=== PATIENT | female | born 1945 | race Caucasian/White ===

== ENCOUNTER 2020-07-26 07:27 | Day surgery (SDC) | payer BC, SELFPAY ==
[2020-07-21 11:06] VITALS: BMI 31.1
--- NOTE | 2020-07-23 13:05 | MHC.SHP ---
Pre-Procedural Eval Section A The patient is an INPATIENT: No The History & Physical has been completed within 30 days and I have reviewed it.: Yes Section B Chief Complaint: Cataract Right Eye Allergies: Allergies Allergy/AdvReac Type Severity Reaction Status Date / Time latex Allergy Rash Verified 07/21/20 11:05 Plan Diagnosis/Plan: Unchanged I have reviewed the history and physical and performed a pertinent physical examination on my patient. No changes have occurred unless specified.
[2020-07-26] MEDS: Tetracaine HCl/PF 0.5% Oph Sol 4 ML DROPS 1 DROP EYE-RIGHT (09:07)
[2020-07-26] MEDS: Tropicamide 1 % Ophth Sol 3 ML BTL 1 DROP EYE-RIGHT ×3 (09:09→09:15)
[2020-07-26] MEDS: Phenylephrine HCL 2.5% Oph SoL 2 ML BOTTLE 1 DROP EYE-RIGHT ×3 (09:11→09:17)
[2020-07-26] MEDS: Lactated Ringers 500 ML 50 ML IV (09:18)
[2020-07-26 09:19] VITALS: BP 128/62; PULSE 69; RESP 20; TEMP 36.2; O2SAT 99
--- NOTE | 2020-07-26 09:23 | HO.ANESPROP2 ---
HPI - Anesthesia Eval Consult details Narrative: 74 year old female patient here for Right cataract extraction, IOL insertion PMFSH Past Medical History Medical History HTN (hypertension) Rash, skin Family History Family history of problems with anesthesia: No Surgical History Surgical History History of breast augmentation History of rhytidectomy Hx of colonoscopy History of Problems with Anesthesia: No Social History Social History Alcohol intake: current Alcohol intake frequency: a few times a week Alcohol type: wine Smoking Status: Former smoker Use of substances other than those prescribed or required for medical reasons: No Advance Directives: No Advance Directives Information Provided: No Advance Directives on File: No Meds Allergies Allergy/AdvReac Type Severity Reaction Status Date / Time latex Allergy Rash Verified 07/26/20 08:54 Active Medications: Current Medications Generic Name Dose Route Start Last Admin Trade Name Freq PRN Reason Stop Dose Admin Sodium Chloride 500 mls @ 50 mls/hr 07/26/20 06:00 Ns IV 07/26/20 15:59 .Q10H JASMYNE Lactated Ringer's 500 mls @ 50 mls/hr 07/26/20 07:15 07/26/20 09:18 Lr IV 50 mls/hr .Q10H JASMYNE Administration Lactated Ringer's 500 mls @ 50 mls/hr 07/26/20 07:15 Lr IV .Q10H JASMYNE Povidone Iodine 1 appl 07/26/20 08:43 Povidone Iodine 5 % Ophth Soln 30 Ml Bottle EYE-RIGHT PREOP PRN Pre-Op Surgical Implant Prophy Home Medications Medication Instructions Recorded Confirmed Last Taken Type cephalexin 1 cap PO BID 07/21/20 07/21/20 Unknown History conj estrog-medroxyprogest sharan 1 tab PO DAILY 07/21/20 07/21/20 Unknown History [Prempro] hydroxyzine HCl 25 mg PO TID PRN 07/21/20 07/21/20 Unknown History telmisartan 1 tab PO DAILY 07/21/20 07/21/20 Unknown History Exam Exam Date and Time: July 26, 2020922 Height,Weight and Vital Signs: Height 5 ft 2 in Weight 77.111 kg Last Vital Signs Temp 97.1 F 07/26/20 09:19 Pulse 69 07/26/20 09:19 Resp 20 07/26/20 09:19 BP 128/62 07/26/20 09:19 Pulse Ox 99 07/26/20 09:19 Airway Mallampati Class: II TM Dist: >3cm Neck ROM: Full Heart: RRR+ ?murmur Lungs: CTAB Assessment and Plan Assessment Anesthesia Assessment: Anesthesia Plan Discussed and Chart Reviewed Final Anesthetic Review NPO: Yes ASA Class: II Final Preanesthetic Review: No Changes in Pt Med Stat, Meds/Allgs Chart Reviewed, Consent Obtained/Reviewed and Anes Risks/Benef Reviewed Patient Risk: Low Procedure Risk: Low Assessment/Block/Sedation in SS: Assess/Block/Sedation-SS Anesthetic Plan Anesthetic Plan: MAC: Disposition: Standard PACU
--- NOTE | 2020-07-26 09:51 | HO.PNOPHT ---
Ophthalmology Procedure Procedure Date of Service: 07/26/20 Ophthalmology Viscoelastic: Healdustin Doradot Dual Pack Pro Ophthalmology Lenses: TECKASEY [id number] (22) Procedure Notes: PREOPERATIVE DIAGNOSIS: Decreased visual acuity right eye secondary to cataract POSTOPERATIVE DIAGNOSIS: Same PROCEDURE: Right cataract extraction with intraocular lens insertion SURGEON: Chad Kapoor M.D. ANESTHESIA: Topical/MAC ESTIMATED BLOOD LOSS: None COMPLICATIONS: None After obtaining informed consent, the patient was brought to the operating room suite and placed in the supine position. After adequate sedation per anesthesia, topical drops of Tetracaine were given to the right eye. The eye was then prepped and draped in the usual sterile fashion. The operating room microscope was then positioned over the operative eye and a lid speculum placed. A paracentesis was created. Viscoelastic was then instilled into the anterior chamber. A three plane incision was then created temporally, utilizing a 2.85 mm keratome. Capsulotomy forceps were then utilized to create a circular tear capsulotomy. Hydrodissection and hydrodelineation were carried out until adequate mobilization of the nucleus occurred. Phacoemulsification was then utilized to remove the dense central nucleus followed by removal of the cortical material utilizing the automated aspiration irrigation unit. Viscoelastic was instilled into the posterior capsular bag followed by placement of a posterior chamber intraocular lens without difficulty. The residual Viscoelastic was then removed utilizing the automated IA machine. The wound was checked and found to be watertight. The patient tolerated the procedure well and the lid speculum was removed. Intracameral injection of Vigamox 0.1 mL followed by a subtenon injection of Kenalog-40 0.2 mL were administered. The patient will be seen in the a.m.
[2020-07-26 10:20] VITALS: BP 122/60; PULSE 81; RESP 16; TEMP 37.3; O2SAT 99
== END 2020-07-26 11:24 | disposition home or self-care (01) ==
PROVIDERS: PCP Neuromusculoskeletal Medicine, Sports Medicine; Visit Provider Ophthalmology
PROC: (CPT 66985; principal; 2020-07-26 10:00)
DX: H25.11 Age-related nuclear cataract, right eye (principal); H54.7 Unspecified visual loss; Z83.511 Family history of glaucoma; I10 Essential (primary) hypertension; L30.9 Dermatitis, unspecified; Z79.899 Other long term (current) drug therapy; Z87.891 Personal history of nicotine dependence
CPT/HCPCS: 66984; J2250; J3010; J3300; V2632

== ENCOUNTER 2020-08-09 07:21 | Day surgery (SDC) | payer BC, SELFPAY ==
[2020-07-21 11:12] VITALS: BMI 31.1
--- NOTE | 2020-08-04 16:34 | MHC.SHP ---
Pre-Procedural Eval Section A The patient is an INPATIENT: No The History & Physical has been completed within 30 days and I have reviewed it.: Yes Section B Chief Complaint: Cataract Left Eye Allergies: Allergies Allergy/AdvReac Type Severity Reaction Status Date / Time latex Allergy Rash Verified 07/26/20 08:54 Plan Diagnosis/Plan: Unchanged I have reviewed the history and physical and performed a pertinent physical examination on my patient. No changes have occurred unless specified.
--- NOTE | 2020-08-06 08:31 | P.CONAN_ITS ---
Documented by User: Amber Kelley 08/06/20 08:35 HPI - Anesthesia Eval Consult details Narrative: 74yo F for Left Cataract Extraction IOL Insertion Right eye 07/26/20 - Fent 25, Midaz 1 [facility] Past Medical History Medical History HTN (hypertension) Rash, skin Surgical History Surgical History History of breast augmentation History of rhytidectomy Hx of colonoscopy Social History Social History Alcohol intake: current Alcohol intake frequency: a few times a week Alcohol type: wine Smoking Status: Former smoker Smoking Quit Date: Use of substances other than those prescribed or required for medical reasons: No Advance Directives: No Advance Directives Information Provided: No Advance Directives on File: No Meds Allergies Allergy/AdvReac Type Severity Reaction Status Date / Time latex Allergy Rash Verified 07/26/20 08:54 Home Medications Medication Instructions Recorded Confirmed Last Taken Type cephalexin 1 cap PO BID 07/21/20 07/21/20 Unknown History conj estrog-medroxyprogest sharan 1 tab PO DAILY 07/21/20 07/21/20 Unknown History [Prempro] hydroxyzine HCl 25 mg PO TID PRN 07/21/20 07/21/20 Unknown History telmisartan 1 tab PO DAILY 07/21/20 07/21/20 Unknown History Exam Exam Date and Time: August 06, 2020 0831 Height,Weight and Vital Signs: Height 5 ft 2 in Weight 77.111 kg Assessment and Plan Assessment Anesthesia Assessment: Chart Reviewed Documented by User: Dana Couch 08/09/20 08:46 [facility] Past Medical History Medical History HTN (hypertension) Rash, skin Surgical History Surgical History History of breast augmentation History of rhytidectomy Hx of colonoscopy Social History Social History Alcohol intake: current Alcohol intake frequency: a few times a week Alcohol type: wine Smoking Status: Former smoker Smoking Quit Date: Use of substances other than those prescribed or required for medical reasons: No Advance Directives: No Advance Directives Information Provided: No Advance Directives on File: No Meds Allergies Allergy/AdvReac Type Severity Reaction Status Date / Time latex Allergy Rash Verified 07/26/20 08:54 Home Medications Medication Instructions Recorded Confirmed Last Taken Type cephalexin 1 cap PO BID 07/21/20 07/21/20 Unknown History conj estrog-medroxyprogest sharan 1 tab PO DAILY 07/21/20 07/21/20 Unknown History [Prempro] hydroxyzine HCl 25 mg PO TID PRN 07/21/20 07/21/20 Unknown History telmisartan 1 tab PO DAILY 07/21/20 07/21/20 Unknown History Exam Height,Weight and Vital Signs: Vital Signs Temp Pulse Resp BP Pulse Ox 08/09/20 07:42 97.2 F 71 16 127/67 98 Airway Mallampati Class: II TM Dist: >3cm Neck ROM: Full Heart: RRR Lungs: CTAB Assessment and Plan Assessment Anesthesia Assessment: Anesthesia Plan Discussed and Chart Reviewed Final Anesthetic Review NPO: Yes ASA Class: II Final Preanesthetic Review: No Changes in Pt Med Stat, Meds/Allgs Chart Reviewed, Consent Obtained/Reviewed and Anes Risks/Benef Reviewed Patient Risk: Low Procedure Risk: Low Assessment/Block/Sedation in SS: Assess/Block/Sedation-SS Anesthetic Plan Anesthetic Plan: MAC: Disposition: Standard PACU
[2020-08-09 07:42] VITALS: BP 127/67; PULSE 71; RESP 16; TEMP 36.2; O2SAT 98
[2020-08-09] MEDS: Tetracaine HCl/PF 0.5% Oph Sol 4 ML DROPS 1 DROP EYE-LEFT (07:53)
[2020-08-09] MEDS: Tropicamide 1 % Ophth Sol 3 ML BTL 1 DROP EYE-LEFT ×3 (07:54→08:05)
[2020-08-09] MEDS: Phenylephrine HCL 2.5% Oph SoL 2 ML BOTTLE 1 DROP EYE-LEFT ×3 (07:57→08:07)
[2020-08-09 09:16] VITALS: BP 136/61; PULSE 65; RESP 14; TEMP 36.1; O2SAT 100
--- NOTE | 2020-08-09 09:17 | HO.PNOPHT ---
Ophthalmology Procedure Procedure Date of Service: 08/09/20 Ophthalmology Viscoelastic: Healon Duet Dual Pack Pro Ophthalmology Lenses: TECNIS [id number] (22.5) Procedure Notes: PREOPERATIVE DIAGNOSIS: Decreased visual acuity left eye secondary to cataract POSTOPERATIVE DIAGNOSIS: Same PROCEDURE: Left cataract extraction with intraocular lens insertion SURGEON: Chad Kapoor M.D. ANESTHESIA: Topical/MAC ESTIMATED BLOOD LOSS: None COMPLICATIONS: None After obtaining informed consent, the patient was brought to the operation room suite and placed in the supine position. After adequate sedation per anesthesia, topical drops of Tetracaine were given to the left eye. The eye was then prepped and draped in the usual sterile fashion. The operating room microscope was then positioned over the operative eye and a lid speculum placed. A paracentesis was created. Viscoelastic was then instilled into the anterior chamber. A three plane incision was then created temporally, utilizing a 2.85 mm keratome. Capsulotomy forceps were then utilized to create a circular tear capsulotomy. Hydrodissection and hydrodelineation were carried out until adequate mobilization of the nucleus occurred. Phacoemulsification was then utilized to remove the dense central nucleus followed by removal of the cortical material utilizing the automated aspiration irrigation unit. Viscoat elastic was instilled into the posterior capsular bag followed by placement of a posterior chamber intraocular lens without difficulty. The residual Viscoat elastic was then removed utilizing the automated IA machine. The wound was check and found to be watertight. The patient tolerated the procedure well and the lid speculum was removed. Intracameral injection of Vigamox 0.1 mL followed by a subtenon injection of Kenalog-40 0.2 mL were administered. The patient will be seen in the a.m.
== END 2020-08-09 10:22 | disposition home or self-care (01) ==
PROVIDERS: PCP Neuromusculoskeletal Medicine, Sports Medicine; Visit Provider Ophthalmology
PROC: (CPT 66985; principal; 2020-08-09 09:20)
DX: H25.12 Age-related nuclear cataract, left eye (principal); H54.7 Unspecified visual loss; I10 Essential (primary) hypertension; L30.9 Dermatitis, unspecified; Z87.891 Personal history of nicotine dependence; Z79.899 Other long term (current) drug therapy
CPT/HCPCS: 66984; J2250; J3010; J3300; V2632